=== PATIENT | male | born 1965 | race Caucasian/White ===

== ENCOUNTER 2017-10-17 06:23 | Inpatient (IN) | payer BC ==
--- NOTE | 2017-10-14 21:29 | HP ---
HISTORY AND PHYSICAL: DATE OF ADMISSION/SURGERY: 10/17/17 DATE OF OFFICE VISIT: 10/14/17 SURGEON: Domenica Krishna MD * (DICTATED BY YING FLORES) PROCEDURE: Right total hip arthroplasty. CHIEF COMPLAINT: Right hip pain. HISTORY OF PRESENT ILLNESS: Mr. Medina is a 52-year-old gentleman with continued complaints of right hip pain secondary to end-stage osteoarthritis. He has failed conservative management and elected to proceed with a right total hip arthroplasty, which is scheduled for 10/17/[address] Krishna. PAST MEDICAL HISTORY: Denies. PAST SURGICAL HISTORY: Tonsillectomy and colonoscopy. CURRENT MEDICATIONS: 1. Ibuprofen. 2. Benadryl as needed. ALLERGIES: None. FAMILY HISTORY: Hypertrophic cardiomyopathy. SOCIAL HISTORY: A 52-year-old gentleman lives with his and daughter. 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 He denies use of drugs. Uses occasional alcohol. He does not smoke. REVIEW OF SYSTEMS: A complete 14-point review of systems was reviewed with the patient, was all negative and noncontributory. PHYSICAL EXAMINATION GENERAL: He is well-developed, well-nourished, in no acute distress. VITAL SIGNS: He stands 5 feet 6 inches tall, weighs 160 pounds. His blood pressure 110/60, heart rate 72. HEENT: Normocephalic, atraumatic. NECK: Supple. No palpable lymph nodes. PULMONARY: The lungs are clear to auscultation bilaterally. CARDIO: Regular rate and rhythm. Strong S1, S2. ABDOMEN: Soft, nontender, and nondistended. NEUROLOGICAL: He is alert and oriented x3. Cranial nerves II through XII are intact. MUSCULOSKELETAL: Right lower extremity, the skin is intact. There are no open wounds or abrasions. He walks with an antalgic-type gait favoring his right hip. He has decreased internal and external rotation of the right hip. He has 2 + dorsalis pedis pulses, intact sensation. His lower extremity muscle group strengths were intact at 5/5. ASSESSMENT AND PLAN: Mr. Medina is a 52-year-old gentleman with continued complaints of right hip pain secondary to end-stage osteoarthritis. He has failed conservative management and elected to proceed with a right total hip arthroplasty, which is scheduled for 10/17/[address] Krishna discussed the risks and benefits of the surgery at today's visit and all of his questions were answered. Postoperatively, he will be placed on aspirin twice daily for DVT prophylaxis. He will follow up with Dr. Krishna 2 weeks after the surgery. YING FLORES [id number]/[facility] #: [id number] OLEG
[~2017-10-17 06:23] MED LIST: Buffered Lidocaine 0.9% SYRIN* 5 ML/SYR SYRINGE INTRADERM ONE; Famotidine IV* 10 MG/ML 2 ML (20 mg) IV ONE; Gabapentin CAP(*) 300 MG PO ONE
--- OUTSIDE RECORDS SUMMARY | 2017-10-17 06:27 | XMS REPORT ---
:1965 External Reference #:[id number] Author Organization [facility] Address [address] [address] Phone [phone] Care Team Providers Name Role Phone Castro Nguyễn MD Primary Care Physician Unavailable Payers Type Date Identification Numbers Payment Provider Subscriber Commercial Policy Number: [id number] [employer] Merissa Medina PayID: [id number] [address] [address] [place] [id number] Problems Date Description Provider Status Onset: 08/09/2017 Localized, primary osteoarthritis of the Domenicaflorin Krishna M.D. 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 needed pain Colace 10/14/ Active Capsules 100mg 90caps 1 tab by mouth Domenica 2017 2-3 times a Tomi, day as needed M.D. No Active 08/09/ Hx Unknown Medications 2017 - 2017 No Active 11/14/ Hx Osmany Medications 2016 - Dominick 11/14/ M.D. 2016 Fish Oil / Hx Capsules 600mg Unknown 0000 - 2017 Benadryl / Hx Tablets 25mg occassionally Unknown 0000 - for sleep 2017 Vital Signs Date Vital Result Comment 10/14/2017 Height 66 inches 5'6" Weight 160.00 lb Heart Rate 72 /min BP Systolic 110 mmHg BP Diastolic 60 mmHg BMI (Body Mass Index) 25.8 kg/m2 09/02/2017 Height 66 inches 5'6" Heart Rate 66 /min BP Systolic 116 mmHg BP Diastolic 76 mmHg Respiratory Rate 18 /min Body Temperature 97.1 F Pain Level 0 08/09/2017 Height 66 inches 5'6" Weight 153.00 lb BP Systolic 117 mmHg BP Diastolic 68 mmHg Respiratory Rate 15 /min Pain Level 6 BMI (Body Mass Index) 24.7 kg/m2 02/02/2016 Height 66 inches 5'6" Weight 165.00 lb BMI (Body Mass Index) 26.6 kg/m2 12/14/2015 Height 66 inches 5'6" Weight 164.00 lb Heart Rate 57 /min BP Systolic 108 mmHg BP Diastolic 69 mmHg BMI (Body Mass Index) 26.5 kg/m2 11/15/2015 Height 66 inches 5'6" Weight 164.00 lb Heart Rate 63 /min BP Systolic 124 mmHg BP Diastolic 84 mmHg BMI (Body Mass Index) 26.5 kg/m2 Results Test Date Test Result H/L Range Note CBC Auto Diff 10/07/2017 White Blood Count 7.8 10^3/uL 3.5-10.8 Red Blood Count 4.43 10^6/uL 4.0-5.4 Hemoglobin 14.5 g/dL 14.0-18.0 Hematocrit 43 % 42-52 Mean Corpuscular Volume 96 fL High 80-94 Mean Corpuscular Hemoglobin 33 pg High 27-31 Mean Corpuscular HGB Conc 34 g/dL 31-36 Red Cell Distribution Width 13 % 10.5-15 Platelet Count 212 10^3/uL 150-450 Mean Platelet Volume 9 um3 7.4-10.4 Abs Neutrophils 4.6 10^3/uL 1.5-7.7 Abs Lymphocytes 2.2 10^3/uL 1.0-4.8 Abs Monocytes 0.6 10^3/uL 0-0.8 Abs Eosinophils 0.3 10^3/uL 0-0.6 Abs Basophils 0.1 10^3/uL 0-0.2 Abs Nucleated RBC 0 10^3/uL Granulocyte % 59.5 % 38-83 Lymphocyte % 27.9 % 25-47 Monocyte % 8.1 % High 0-7 Eosinophil % 3.8 % 0-6 Basophil % 0.7 % 0-2 Nucleated Red Blood Cells % 0.1 Urinalysis Profile 10/07/2017 Urine Color Yellow Urine Appearance Clear Urine Specific [place] 1.020 1.010-1.030 Urine pH 6.0 5-9 Urine Urobilinogen Negative Negative Urine Ketones Negative Negative Urine Protein Negative Negative Urine Leukocytes Negative Negative Urine Blood Negative Negative Urine Nitrite Negative Negative Urine Bilirubin Negative Negative Urine Glucose Negative Negative Inr/Protime 10/07/2017 Inr 0.96 0.77-1.02 Laboratory test finding 10/07/2017 Partial Thrombo Time 31.0 seconds 26.0 -36.3 PTT Type & Screen 10/07/2017 Patient Blood Type O Negative Antibody Screen NEGATIVE Comp Metabolic Panel 10/07/2017 Sodium 138 mmol/L 133-145 Potassium 4.7 mmol/L 3.5-5.0 Chloride 104 mmol/L 101-111 Co2 Carbon Dioxide 30 mmol/L 22-32 Anion Gap 4 mmol/L 2-11 Glucose 82 mg/dL 70-100 Blood Urea Nitrogen 14 mg/dL 6-24 Creatinine 0.89 mg/dL 0.67-1.17 BUN/Creatinine Ratio 15.7 8-20 Calcium 9.6 mg/dL 8.6-10.3 Total Protein 6.8 g/dL 6.4-8.9 Albumin 4.3 g/dL 3.2-5.2 Globulin 2.5 g/dL 2-4 Albumin/Globulin Ratio 1.7 1-3 Total Bilirubin 0.50 mg/dL 0.2-1.0 Alkaline Phosphatase 60 U/L 34-104 Alt 13 U/L 7-52 Ast 21 U/L 13-39 Egfr Non- 89.4 >60 Egfr 115.0 >60 1 Urine Culture And Sensitivities 10/07/2017 Urine Culture SEE RESULT BELOW 2 1 Because ethnic data is not always readily available, this report includes an eGFR for both -Americans and non- Americans. The National Kidney Disease Education Program (NKDEP) does not endorse the use of the MDRD equation for patients that are not between the ages of 18 and 70, are , have extremes of body size, muscle mass, or nutritional status, or are non- or non-. According to the National Kidney Foundation, irrespective of diagnosis, the stage of the disease is based on the level of kidney function: Stage Description GFR(mL/min/1.73 m(2)) 1 Kidney damage with normal or decreased GFR 90 2 Kidney damage with mild decrease in GFR 60-89 3 Moderate decrease in GFR 30-59 4 Severe decrease in GFR 15-29 5 Kidney failure <15 (or dialysis) 2 SEE RESULT BELOW Name: JACOBY MEDINA : [address]: Domenica Krishna MD Acct: [id number] Unit: [id number] AGE: 52 Location: [facility] Re10/07/17 SEX: M Status: REG REF SPEC: [id number] CARLIE: 10/07/17-1039 [facility] DR: Domenica Krishna MD REQ: [id number] RECD: 10/07/17 STATUS: ROGELIO VILLANUEVA DR: Castro Nguyễn MD _ SOURCE: URINE SPDESC: ORDERED: Urine Culture QUERIES: Urine Source: Clean Catch Procedure Result Reported Site Urine Culture Final 10/08/17- 1201 ML No Growth (<1,000 CFU/mL) * ML - Main Lab . END OF REPORT DEPARTMENT OF PATHOLOGY, [address] [place] [address] Terrance Lnych M.D. Director [facility] # [id number] Procedures Description No Information Encounters Type Date Location Provider CPT E/M Dx Office Visit 09/02/2017 [facility] Krishna M.D. 88458 M25.551 10:30a Of [facility] M16.11 Office Visit 08/09/2017 2:30p [facility] Krishna M.D. 57348 M25.551 [facility] M16.11 Office Visit 02/02/2016 8:45a [facility] 92463 M72.2 [facility] Mer[facility] Office Visit 12/14/2015 3:50p [facility] 72510 M72.2 [facility] Office Visit 11/15/2015 4:10p [facility] 65710 M72.2 [facility] JohnsonD. Plan of Care Future Appointment(s):10/17/2017 8:30 am - Naveen Scott PA-C at [facility]10/17/2017 8:30 am - YING Kaye at [facility]10/30/2017 9:30 am - Domenica Krishna M.D. at [facility]10/17/2017 8:30 am - Domenica Krishna M.D. at [facility]10/14/2017 - Domenica Krishna M.D.M25.551 Pain in right hipFollow up:Follow up: 2 weeks after [id number] Unilateral primary osteoarthritis, right hip
[2017-10-17] MEDS ORDERED: Gabapentin CAP(*) 300 MG ONE (06:34)
[2017-10-17] MEDS ORDERED: Famotidine IV* 10 MG/ML 2 ML (20 mg) ONE (06:34)
[2017-10-17] MEDS ORDERED: Buffered Lidocaine 0.9% SYRIN* 5 ML/SYR SYRINGE ONE (06:34)
[2017-10-17] MEDS ORDERED: ceFAZolin 2 GM (*##) 2 GM/100 ML BAG USE CEFA2SOL IVPB ONE (06:35)
[2017-10-17] MEDS ORDERED: Midazolam* 1 MG/ML 5 ML VIAL (5 MG) ONE (07:39)
[2017-10-17] MEDS ORDERED: Propofol* 500 MG/50 ML BTL ONE (07:39)
[2017-10-17] MEDS ORDERED: fentaNYL* 50 MCG/ML 2 ML VIAL (100 MCG VIAL) ONE (07:39)
[2017-10-17] MEDS ORDERED: Lidocaine 2% PF * 5 ML VIAL ONE (07:40)
[2017-10-17] MEDS ORDERED: Phenylephrine INJ* 10 MG/ML 1 ML VIAL (10 MG) ONE (07:40)
[2017-10-17] MEDS ORDERED: Morphine PF AMP (0.5MG/ML)* 5 MG/10 ML AMP ONE (07:46)
[2017-10-17] MEDS ORDERED: Polyethylene Glycol 3350* 17 GM PACKET PO PRN (08:42)
[2017-10-17] MEDS ORDERED: Bisacodyl SUPP* 10 MG SUPP PR PRN (08:42)
[2017-10-17] MEDS ORDERED: Magnesium Hydroxide LIQ* 30 ML UDC PO PRN (08:42)
[2017-10-17] MEDS ORDERED: Cyclobenzaprine TAB* 10 MG PO PRN (08:42)
[2017-10-17] MEDS ORDERED: oxyCODONE TAB* 5 MG TAB PO PRN (08:56)
[2017-10-17] MEDS ORDERED: HYDROmorphone INJ* 1 MG/ML CARPUJECT SYRINGE IV PRN (08:56)
[2017-10-17] MEDS ORDERED: Acetaminophen TAB* 325 MG PO PRN (08:56)
[2017-10-17] MEDS ORDERED: DiMENhydriNATE IV* 50 MG/ML VIAL IV PUSH PRN (08:56)
[2017-10-17] MEDS ORDERED: Naloxone* 0.4 MG/ML 1 ML VIAL IV PRN ×2 (08:56→09:01)
[2017-10-17] MEDS ORDERED: Gabapentin CAP(*) 100 MG PO ONE (08:58)
[2017-10-17] MEDS ORDERED: ceFAZolin 1 GM in Dextrose (*) 1 GM/50 ML BAG IVPB SCH (09:00)
[2017-10-17] MEDS ORDERED: Nalbuphine* 20 MG/ML 1 ML VIAL IV PRN (09:01)
[2017-10-17] MEDS ORDERED: Gabapentin CAP(*) 100 MG ONE (10:00)
[2017-10-17] MEDS ORDERED: EPHEDrine (Pressors)* 50 MG/ML VIAL ONE (10:26)
--- NOTE | 2017-10-17 10:55 | RAD ---
Indication: Degenerative changes of the right hip. Single view of the right hip taken in the operating room demonstrates right femoral reamer in place. Pelvic ring is intact. IMPRESSION: Intraoperative control films for right hip replacement.
[2017-10-17] MEDS ORDERED: Propofol* 10 MG/ML 20 ML BTL IV PUSH ONE (12:34)
[2017-10-17] MEDS ORDERED: Ketorolac INJ* 30 MG/ML 1 ML VIAL ONE (12:34)
[2017-10-17] MEDS ORDERED: Dexamethasone IV* 4 MG/ML 1 ML (4 MG) ONE (12:34)
[2017-10-17] MEDS ORDERED: Ondansetron INJ* 2 MG/ML VIAL ONE (12:34)
[2017-10-17] MEDS: Magnesium Hydroxide LIQ* 30 ML UDC PO SCH ×2 (13:05→21:52)
[2017-10-17] MEDS: Docusate CAP* 100 MG PO SCH ×2 (13:05→21:53)
--- NOTE | 2017-10-17 13:08 | RAD ---
INDICATION: Status post total right hip replacement surgery. COMPARISON: Comparison is made with a prior x-ray study of the right hip from August 09, 2017. TECHNIQUE: An AP view of the pelvis and frontal and lateral views of the right hip were obtained. FINDINGS: The patient is status post total right hip replacement surgery. The bones and prostheses are in normal alignment. There is a small amount of air present laterally in the right thigh consistent with the patient's recent surgery. IMPRESSION: STATUS POST TOTAL RIGHT HIP REPLACEMENT SURGERY.
[2017-10-17] MEDS: oxyCODONE/Acetamin 5/325 MG* TAB PO PRN ×3 (14:02→22:57)
[2017-10-17] MEDS: Ibuprofen TAB* 600 MG PO SCH ×2 (15:22→21:53)
[2017-10-17] MEDS: ceFAZolin 1 GM/10 ML SYRINGE IVPB Q8H IVPB SCH ×4 (16:04→23:55)
[2017-10-18] MEDS ORDERED: oxyCODONE TAB* 5 MG TAB PO PRN
[2017-10-18] MEDS ORDERED: Ondansetron INJ* 2 MG/ML VIAL IV PRN
[2017-10-18] MEDS ORDERED: Morphine INJ* 2 MG/ML 1 ML CARPUJECT IV PRN
[2017-10-18] MEDS ORDERED: diPHENhydraMINE IV* 50 MG/ML 1 ml VIAL (BENADRYL) IV PRN
[2017-10-18] MEDS ORDERED: Ondansetron TAB* 4 MG PO PRN
[2017-10-18] MEDS: Ibuprofen TAB* 600 MG PO SCH ×2 (03:23→09:31)
[2017-10-18 06:17] LABS: Hematocrit 35 % (42-52); Mean Platelet Volume 8 um3 (7.4-10.4); Platelet Count 173 10^3/ul (150-450)
[2017-10-18 06:29] LABS: INR 0.98 (0.77-1.02)
[2017-10-18 06:32] LABS: EGFR Non-African American 95.6 (>60)
[2017-10-18] MEDS: oxyCODONE/Acetamin 5/325 MG* TAB PO PRN ×2 (07:33→11:32)
[2017-10-18] MEDS: Docusate CAP* 100 MG PO SCH ×2 (07:33→19:30)
[2017-10-18] MEDS: ceFAZolin 1 GM/10 ML SYRINGE IVPB Q8H IVPB SCH ×2 (07:33)
[2017-10-18] MEDS: Magnesium Hydroxide LIQ* 30 ML UDC PO SCH ×2 (07:34→21:17)
--- NOTE | 2017-10-18 09:15 | PN ---
Progress Note - Progress Note Date of Service: 10/18/17 SOAP: Subjective: 52 y/o male s/p R DIONNE by DR collier 10/17/2016. Patient resting comfortably, no questions re: surgery, d/c questions answered. VSS, afebrile overnight. Objective: General- Well appearing, NAD, AO sitting in chair comfortably. MSK- RLE- DF/PF = b/l, PT 2+, negative homans sign surgical dressing intact, no induration/ erythema. SITLT Vital Signs Temp 98.1 F 10/18/17 09:30 Pulse 68 10/18/17 08:17 Resp 16 10/18/17 11:32 BP 104/62 10/18/17 08:17 Pulse Ox 99 10/18/17 08:17 Intake & Output 10/17/17 10/18/17 10/18/17 18:59 06:59 18:59 Intake Total 1750 1240 1340 Output Total 475 2475 225 Balance 1275 -1235 1115 Intake: IV Fluids 1500 lr 1500 Oral 250 1240 1340 Output: Urine 225 Goncalves 475 2475 Other: # Bowel Movements 0 Assessment: Stable 52 y/o male s/p R DIONNE by DR collier 10/17/2016. Plan: - DVT prophylaxis- lovenox in house, ASA BID for D/C - Continue PT/ OT - Follow up with Dr. Collier within 10-14 days - H&H - stable - post-op IV ABX - running - Probably D/C tomorrow. Acetaminophen (Tylenol Tab*) 650 mg PO Q4H PRN PRN Reason: PAIN OR TEMPERATURE Bisacodyl (Dulcolax Supp*) 10 mg SD DAILY PRN PRN Reason: constipation Cyclobenzaprine HCl (Flexeril Tab*) 10 mg PO TID PRN PRN Reason: SPASMS Diphenhydramine HCl (Benadryl Iv*) 12.5 mg IV Q6H PRN PRN Reason: PRURITIS Docusate Sodium (Colace Cap*) 100 mg PO BID [facility] Last Admin: 10/18/17 07:33 Dose: 100 mg Enoxaparin Sodium (Lovenox(*)) 40 mg SUBCUT Q24H [facility] Last Admin: 10/18/17 11:48 Dose: 40 mg Lactated Ringer's (Lactated Ringers 1000 Ml Bag*) 1,000 mls @ 100 mls/hr IV PER RATE [facility] Last Admin: 10/17/17 21:56 Dose: 100 mls/hr Lactulose (Lactulose*) 30 ml PO Q6H PRN PRN Reason: constipation Magnesium Hydroxide (Milk Of Magnesia Liq*) 30 ml PO BID [facility] Last Admin: 10/18/17 07:34 Dose: 30 ml Magnesium Hydroxide (Milk Of Magnesia Liq*) 30 ml PO Q6H PRN PRN Reason: constipation Morphine Sulfate (Morphine Inj (Syringe)*) 2 mg IV Q2H PRN PRN Reason: PAIN Ondansetron HCl (Zofran Inj*) 4 mg IV Q6H PRN PRN Reason: nausea Ondansetron HCl (Zofran Tab*) 4 mg PO Q6H PRN PRN Reason: NAUSEA Oxycodone HCl (Roxycodone Tab*) 10 mg PO Q4H PRN PRN Reason: SEVERE PAIN Last Admin: 10/18/17 03:22 Dose: 10 mg Oxycodone/Acetaminophen (Percocet 5/325 Tab*) 2 tab PO Q4H PRN PRN Reason: PAIN Last Admin: 10/18/17 11:32 Dose: 2 tab Oxycodone/Acetaminophen (Percocet 5/325 Tab*) 1 tab PO Q4H PRN PRN Reason: PAIN Polyethylene Glycol/Electrolytes (Miralax*) 17 gm PO DAILY PRN PRN Reason: Constipation
[2017-10-18] MEDS: Enoxaparin(*) 40 MG/0.4 ML SYR SUBCUT SCH (11:48)
[2017-10-18] MEDS: NS 0.9% 1000 ML* 1,000 ML IV ONE ×2 (13:51→15:00)
--- NOTE | 2017-10-18 14:05 | PN ---
Hospitalist Progress Note Date of Service: 10/18/17 CAT CALL NOTE 13:40: Called to PT gym by staff for patient becoming unresponsive after participating in PT today. Per staff, patient had completed his therapy, however, BP has been running low most of the day. BP in sitting position prior to episode was 90/58. When therapist asked patient to stand, he became pale, shaky,tremulous, non- responsive and syncopized. No fall, patient was assisted back down to chair and remained seated. As patient was sitting he was initially not responding to tactile stimulation, then vomited x1. Patient spontaneously woke up a few seconds later. Entire episode lasted about 3 -4 minutes. VS at that time 105/57 , 69, 16, 99% on RA. Patient showed no acute cognitive/neurologic deficit post-episode and was A&Ox3 with no complaints and no recollection of episode. Etiology Orders for 1 liter bolus, limit percocet to 1 tablet prior to PT with food or crackers, increase free water/PO intake. Call to YING Hernandez, ortho service for update. Please see CAT call and nursing notes for further details.
[2017-10-18] MEDS ORDERED: NS 0.9% 1000 ML* 1,000 ML IV ONE (14:57)
--- NOTE | 2017-10-18 15:36 | OP ---
OPERATIVE REPORT: DATE OF OPERATION: 10/17/17 DATE OF : 63 SURGEON: Domenica Krishna MD. CASTING ROOM HELPER: YING Mclean. Mr. Scott did help throughout the procedure in preparation of the leg, wound retraction, manipulatio n of the hip, and wound closure. ANESTHESIOLOGIST: Dr. Encinas. ANESTHESIA: Spinal. PRE-OP DIAGNOSIS: Severe endstage degenerative osteoarthritis of the right hip joint. POST-OP DIAGNOSIS: Severe endstage degenerative osteoarthritis of the right hip joint. OPERATIVE PROCEDURE: Right total hip arthroplasty. HARDWARE USED: This is uncemented Navin total hip arthroplasty hardware. For the cup, a Trident h emispherical acetabular shell, 52E, a single 16 mm cancellous bone screw. For the insert, a Trident X3 0-degree polyethylene insert 36E. For the stem, an Accolade TMZF size 1 with a 127-degree neck. For the head, a Biolox delta ceramic 40 femoral head 36 +0. COMPLICATIONS: None. ESTIMATED BLOOD LOSS: 250 cc. SPECIMEN: Femoral head and acetabular reaming sent to pathology. BRIEF HISTORY/INDICATION: Mr. Medina is a 52-year-old gentleman with years of increasingly severe ri ght hip pain. He failed conservative treatment with physical therapy and anti-inflammatories. Radio graph showed [id number] arthritis. Due to continued pain and decreased quality of life, the patien t elected to undergo right total hip arthroplasty. Informed consent was obtained from the patient. He understood the risks of surgery included but were not limited to bleeding, infection, damage to ne arby structures, continued pain, need for further surgery, intraoperative fracture, nerve palsy, hard taylor failure or loosening, dislocation, leg length discrepancy, stroke, heart attack, blood clot, and . He wished to proceed. INTRAOPERATIVE FINDINGS: Intraoperatively, the patient was noted to have severe arthritis with full thickness loss of cartilage along the femoral head and acetabulum. DESCRIPTION OF PROCEDURE: Mr. Medina was identified in the preanesthesia unit. His right lower extre mity was marked as the correct side. Informed consent was signed and placed in the chart. Patient w as taken to the operating room and placed under spinal anesthesia. The Goncalves catheter was placed. P atient was placed in the left lateral decubitus position on the pegboard. All bony prominences were well padded. Right lower extremity was prepped and draped in the usual sterile fashion. Preop time-o ut was made to correctly identify the patient's side and site. Appropriate perioperative antibiotics were given within 1 hour of incision. A 12-cm posterior hip incision was made with a 10-blade and carried down to the lateral fascia layer. A new 10-blade was used to make an incision in the lateral fascial layer, in line with the skin inc ision. Charnley retractor was placed. The piriformis and conjoint tendons were identified. These w ere elevated off the posterolateral femur using electrocautery. These were tagged with Ethibond sutu re. Next, electrocautery was used to make a posterolateral capsular flap and this was also tagged wit h Ethibond suture. The hip was carefully dislocated. Lesser troch to center of the femoral head hood sured 52 mm. The oscillating saw was used to make the appropriate femoral neck cut. Femoral head wa s removed. The femur was carefully retracted anteriorly. After appropriate placement of retractors, the acetabu lum was well visualized. Long-handled knife was used to remove any remaining labrum from the acetabu lar rim. The acetabulum was sequentially reamed up to a size 51. Bleeding subchondral bone bed was obtained. A 51 trial had good fit. A 52E Trident acetabular cup was chosen. This was impacted into the acetabulum without difficulty. Good stability was obtained. Appropriate anteversion and abductio n angle were obtained. A single screw was placed in the superoposterior quadrant for added stability . Trident X3 0-degree polyethylene insert 36E was chosen. This was impacted into the acetabulum wit hout difficulty. Stability of the insert was checked and rechecked and noted to be stable. Next, attention was turned to preparation of the femur canal. A canal finder was used to enter the p roximal femur. It was noted that the distal canal was extremely narrow. The femoral canal was seque ntially broached up to a size 1. Size 1 broach had excellent stability and fit. A 127 neck trial wa s placed as well as a 36 +0 femoral head trial. Lesser troch to center of the femoral head measured 52 mm. The hip was reduced and taken through range of motion. The hip was stable in all positions. There was satisfactory soft tissue tension and leg length deemed to be appropriate. The hip was care fully dislocated. All trials were removed. Final implant chosen was an Accolade TMZF size 1 with a 127-degree neck. Biolox delta V40 ceramic femoral head 36 +0 was chosen as the final implant. The f emoral stem was impacted into the femoral canal without difficulty. A stable fit was obtained as wel l as appropriate anteversion. The head was impacted onto the femoral neck. The hip was reduced and t aken through range of motion. The hip was stable in all positions. The hip was copiously irrigated with sterile saline. Previously tagged capsule and tendons were reapproximated to the posterolateral femur through 2 trochanteric drill holes. The lateral fascial layer was closed using interrupted #1 Vicryls. The rest of the incision was closed in a layered fashion using 0 and 2- 0 Vicryls. Skin w as closed using running 3-0 Monocryl suture and Dermabond. The incision was covered with sterile Ada ptic, 4x4s, and paper tape. Patient's anesthesia was reversed without difficulty. He was taken to t he PACU in stable condition. Intended weightbearing will be weightbearing as tolerated. Intended DV T prophylaxis will be Lovenox while in the hospital and likely home on aspirin. [id number]/[facility] #: [id number]
[2017-10-18] MEDS: Acetaminophen TAB* 325 MG PO PRN ×2 (16:31→20:58)
[2017-10-18 17:00] LABS: Hematocrit 32 % (42-52); Hemoglobin 11.3 g/dl (14.0-18.0)
[2017-10-18] MEDS ORDERED: NS 0.9% 1000 ML* 1,000 ML IV SCH (19:15)
[2017-10-19] MEDS: Acetaminophen TAB* 325 MG PO PRN ×2 (01:27→12:46)
[2017-10-19 05:42] LABS: Hematocrit 32 % (42-52)
[2017-10-19] MEDS: oxyCODONE/Acetamin 5/325 MG* TAB PO PRN ×2 (07:12→12:42)
[2017-10-19 07:45] VITALS: BP 103/63
--- NOTE | 2017-10-19 09:42 | PN ---
Progress Note - Progress Note Date of Service: 10/19/17 SOAP: Subjective: Pt sitting comfortably in chair. No complaint over night. Pain well controlled. Denies F/C/N/T Vital Signs: Temp Pulse Resp BP Pulse Ox 98.1 F 69 18 103/63 99 10/19/17 07:15 10/19/17 07:15 10/19/17 08:00 10/19/17 07:15 10/19/17 07:15 Laboratory Last Values Hgb 11.0 g/dl (14.0-18.0) L 10/19/17 05:21 Hct 32 % (42-52) L 10/19/17 05:21 Plt Count 173 10^3/ul (150-450) 10/18/17 05:58 MPV 8 um3 (7.4-10.4) 10/18/17 05:58 INR (Anticoag Therapy) 0.98 (0.77-1.02) 10/18/17 05:58 Sodium 134 mmol/L (133-145) 10/18/17 05:58 Potassium 4.2 mmol/L (3.5-5.0) 10/18/17 05:58 Chloride 101 mmol/L (101-111) 10/18/17 05:58 Carbon Dioxide 27 mmol/L (22-32) 10/18/17 05:58 Anion Gap 6 mmol/L (2-11) 10/18/17 05:58 BUN 15 mg/dL (6-24) 10/18/17 05:58 Creatinine 0.84 mg/dL (0.67-1.17) 10/18/17 05:58 Est GFR ( Amer) 122.9 (>60) 10/18/17 05:58 Est GFR (Non-Af Amer) 95.6 (>60) 10/18/17 05:58 BUN/Creatinine Ratio 17.9 (8-20) 10/18/17 05:58 Glucose 111 mg/dL (70-100) H 10/18/17 05:58 POC Glucose (mg/dL) 128 mg/dL (70-100) H 10/18/17 13:59 Calcium 8.7 mg/dL (8.6-10.3) 10/18/17 05:58 Objective: Dressing changed by Dr. Krishna, incision C/D/I. Calves soft, nontender. No edema. Sensation intact to lite touch distally. 2+ DP pulses. Assessment: 52 yo male s/p Right DIONNE POD#2 Plan: OOB, PT/OT WBAT Pain control DVT Prophylaxis - Home on ASA 325mg D/C home today F/U with Dr. Krishna in the office 10-14 days
[2017-10-19] MEDS: Docusate CAP* 100 MG PO SCH (10:06)
--- NOTE | 2017-10-19 11:01 | PN ---
Hospitalist Progress Note Date of Service: 10/19/17 52 yo male s/p right DIONNE with Dr. Krishna now POD #2. I was asked to f/u with Mr. Medina regarding a syncopal episode yesterday during rehab where he had a syncopal episode and vomited and was a CAT call. Today on exam he reports he hasnt had any further episodes, denies any dizziness, nausea or vomiting. He reports he feels that it was secondary to an extra percocet he had prior to PT. He denies ever having a syncopal episode in the past. No cardiac hx. Denies CP/ SOB. Feels that he could go home today. ROS: 14 point ROS was performed all the pertinent positive and negative are mentioned in the HPI otherwise are negative. PE: Appearance: A+O x3 well developed 52 yo male in NAD. Cardiac: s1, s2, regular. No murmur noted. No LE edema. Lungs: CTA b/l Neuro: A+Ox3. No focal deficits noted Plan: 52 yo male on POD #1 (yesterday) had a syncopal episode during PT session which was a CAT call. He was given 1 Liter of NS due to noted soft BPs. He felt better yesterday fairly quickly w/o any further episodes. He has been ambulating independent w/o any dizziness. No CP, SOB, N or V. I do not think he requires any cardiac work up. Low suspicion for PE. VSS. Suspect this was in the setting of hypovolemia, and narcotics. Ok for patient to be DC to home. Discussed with Ortho YING Skinner.
[2017-10-19] MEDS: Enoxaparin(*) 40 MG/0.4 ML SYR SUBCUT SCH (12:47)
--- NOTE | 2017-10-20 02:13 | DS ---
AMENDED REPORT NOW INCLUDES COSIGNER DESIGNATION - ESIGNED BEFORE ADJUSTMENT DISCHARGE SUMMARY: DATE OF ADMISSION: 10/17/17 DATE OF DISCHARGE: 10/19/17 ATTENDING PHYSICIAN: Dr. Domenica Krishna.* (DICTATED BY YING LYNNE) PRINCIPAL DIAGNOSIS: Right hip severe osteoarthritis. SECONDARY DIAGNOSIS: None. PRINCIPAL PROCEDURE: Right total hip arthroplasty. REASON FOR HOSPITALIZATION: Jacoby is a 52-year-old male with persistent complaints of right hip pain secondary to end-stage osteoarthritis. He has failed conservative management and elected to proceed with a right total hip arthroplasty on 10/17/[address] Krishna. HOSPITAL COURSE: The patient was admitted to the hospital on 10/17/17 for anticipated surgery. Patient underwent right total hip arthroplasty without any complications. He was taken to the recovery room and subsequently the surgical stay unit in a stable condition. Patient's vital signs have remained stable throughout the hospital course including remaining afebrile. Patient's hemoglobin and hematocrit were checked throughout the hospital course. His hemoglobin was 11.0 and hematocrit was 32 on the day of discharge. The patient did have a syncopal episode on postop day #1, which was felt to be due to vasovagal episode. The patient had blood draws for INR checks on postop day 1. His DVT prophylaxis was changed from Coumadin to Lovenox and was discharged on aspirin 325 mg. His INR on postoperative day #1 was 0.98. Patient participated in physical therapy and occupational therapy throughout the hospital course and has done well with his therapy. DISCHARGE INSTRUCTIONS: Weightbearing as tolerated. Wound care, okay to shower on postoperative day #3. No bathing, swimming, or submerging wound. Use gentle soap, pat dry, cover with gauze, Bashir wrap or tape. Call orthopedic office for an increased drainage, redness, increased pain or fever. Go to the ER with shortness of breath or chest pain. Diet, regular diet. Increase fluids and fiber to prevent constipation. Continue to use stool softeners. Call office if no bowel movement within 48 hours. Hip replacement. Continue hip precautions. Do not cross legs or bend greater than 90 degrees or squat. Continue physical therapy and occupational therapy exercises as shown. Visiting home nurse to do wound checks. DVT prophylaxis, aspirin 325 mg b.i.d. x1 month. Pain control, Percocet 5/325 one to two tabs by mouth every 4 to 6 hours as needed for pain, maximum 10 tablets per day. Antibiotics required for any dental work. Follow up with Dr. Krishna in 10 to 14 days postop. Call the orthopedic office for an appointment. YING LYNNE [id number]/[facility] #: [id number] [facility]
== END 2017-10-19 13:05 | disposition home or self-care (01) | DRG 301 ==
LOC: AA 06:23 → SSU 12:31
PROVIDERS: ADMIT Orthopaedic Surgery Adult Reconstructive Orthopaedic Surgery; ATTEND Orthopaedic Surgery Adult Reconstructive Orthopaedic Surgery
PROC: 0SR904A Replacement of Right Hip Joint with Ceramic on Polyethylene Synthetic Substitute, Uncemented, Open Approach (ICD-10-PCS; principal; 2017-10-17 08:00)
DX: M16.11 Unilateral primary osteoarthritis, right hip (principal); R55 Syncope and collapse; Z79.1 Long term (current) use of non-steroidal anti-inflammatories (NSAID); Z79.899 Other long term (current) drug therapy; Z82.49 Family history of ischemic heart disease and other diseases of the circulatory system
CPT/HCPCS: 36415; 80048; 85014; 85018; 85049; 85610; 88304; 88311; 94760; A9270-GY; C1713; C1776; J0690; J1100; J1650; J1885; J2250; J2405; J2704; J3010